=== PATIENT | male | born 1995 | race Caucasian/White ===

== ENCOUNTER 2016-12-21 14:20 | Emergency (ER) | payer SELFPAY ==
[~2016-12-21] VITALS: Ht 165.1 cm; Wt 58.0 kg
[2016-12-21 14:22] VITALS: BP 130/72; PULSE 80; RESP 16; TEMP 98; O2SAT 97
--- NOTE | 2016-12-21 15:32 | PD ---
HPI Chief Complaint: Injury Time Seen by Provider: 15:32 Travel History International Travel<30 days: No Contact w/Intl Traveler<30days: No Traveled to known affect area: No History of Present Illness HPI 21-year-old Serbian-speaking male presents to the emergency department for evaluation of left wrist injury. Patient is accompanied by his [id number] who translates the entire conversation, he was offered an official alarm operator but is requesting his family member translate. The patient was playing soccer this morning when he tripped and fell onto his left wrist with the wrist in flexion. States that he has had pain and swelling since this occurred. He did take Tylenol at home without improvement of symptoms. Pain is aggravated with palpation and movement of the wrist. Denies any numbness or tingling or weakness. Denies any prior injury or trauma to his wrist. Denies any medical conditions. No other complaints. PFSH Past Medical History Medical History: Denies Significant Hx Social History Alcohol Use: No Tobacco Use: No Substance Use: No Allergies-Medications (Allergen,Severity, Reaction): Coded Allergies: No Known Allergies (Unverified , 12/21/16) Reported Meds & Prescriptions Reported Meds & Active Scripts Active Ibuprofen 800 Mg Tab 800 Mg PO Q8H PRN 10 Days Lortab (Hydrocodone-Acetaminophen) 5-325 Mg Tab 1 Tab PO Q6H PRN Review of Systems Except as stated in HPI: all other systems reviewed are Neg Physical Exam Narrative GENERAL: Well-nourished and well-developed pleasant male patient in no acute distress. SKIN: Warm and dry. HEAD: Normocephalic and atraumatic. EYES: No injection, drainage, or hyphema noted. PERRLA. EOMI. ENT: No nasal drainage noted. Oropharynx is clear. NECK: Supple and the trachea is midline. CARDIOVASCULAR: Regular rate and rhythm. RESPIRATORY: Breath sounds are equal bilaterally with no accessory muscle use, wheezing, rhonchi, or crackles. GASTROINTESTINAL: Abdomen is soft, non-tender, and nondistended. EXTREMITY: Left wrist is swollen and tender to palpation. Radial pulses are 2+ bilaterally. Patient is able to make a fist and move his fingers without difficulty. Full range of motion in all other joints. Normal opposition of thumb. Distal extremity neurovascularly intact with intact two point discrimination. NEUROLOGICAL: Awake, alert, and oriented. Normal speech and gait. Cranial nerves are grossly intact. Data Data Last Documented VS Vital Signs Date Time Temp Pulse Resp B/P Pulse Ox O2 Delivery O2 Flow Rate FiO2 12/21/16 14:22 98.0 80 16 130/72 97 Room Air Orders Wrist, Complete ([id number]) (12/21/16 ) Acetamin-Hydrocod 325-5 Mg ([place] 5-325 (12/21/16 15:45) Splint Or Brace Apply/Monitor (12/21/16 15:31) Mandatory Outpatient Referral (12/21/16 16:10) [facility] Medical Decision Making Medical Screen Exam Complete: Yes Emergency Medical Condition: Yes Differential Diagnosis Wrist fracture versus sprain versus contusion Narrative Course 21-year-old male presents to the emergency department for evaluation of left wrist injury that occurred while playing soccer this morning. Patient is afebrile, vital signs are stable. The patient's left upper extremity is neurovascularly intact. X-ray imaging is been ordered and is pending. X-ray imaging shows a comminuted intra-articular mildly displaced Colles' fracture of the left wrist. Patient is placed in a sugar tong splint and will be discharged with prescriptions for pain. He is instructed to follow-up with Dr. Ojeda orthopedic surgeon in the office. The patient verbalizes understanding and agreement with treatment plan. All questions answered. Physician Communication Physician Communication I spoke with Dr. Ojeda, orthopedic surgeon, who also reviewed the patient's x- rays and recommends patient be placed in a splint and follow-up as an outpatient in the office. Diagnosis Primary Impression: Left wrist fracture Qualified Code: S62.102A - Left wrist fracture, closed, initial encounter Referrals: Percy Ojeda MD Patient Instructions: General Instructions, Wrist Fracture in Adults (ED) Additional Instructions: Splint. Keep hand elevated. Apply ice for 20 minutes on, 20 minutes off. Take medication as prescribed. Do not take Lortab with alcohol or while driving. Follow-up with Dr. Ojeda, orthopedic surgeon. Return to the ED for any acute worsening of symptoms. Med/Other Pt SpecificInfo: Prescription(s) given Scripts Ibuprofen 800 Mg [id number] Mg PO Q8H PRN (PAIN SCALE 1 TO 10) 10 Days Ref 0 Prov:Adam Lee MD 2/12/17 Hydrocodone-Acetaminophen (Lortab)5-325 Mg Tab1 Tab PO Q6H PRN (PAIN GREATER THAN 6) #15 TAB Ref 0 Prov:Adam Lee MD 12/21/16 Disposition: 01 DISCHARGE HOME Condition: Stable Katlyn Sanabria Dec 21, 2016 15:32
[2016-12-21] MEDS ORDERED: ACETAMINOPHEN/HYDROcodone 325 MG/5 MG TAB PO ONE (15:45)
--- NOTE | 2016-12-21 16:02 | RADRPT ---
EXAM DATE/TIME: 12/21/2016 15:31 [facility] COMPARISON: No previous studies available for comparison. INDICATIONS : Left wrist pain post fall today. MEDICAL HISTORY : None. SURGICAL HISTORY : None. ENCOUNTER: Initial ACUITY: 1 day PAIN SCORE: 10/10 LOCATION: Left wrist. FINDINGS: There is a mildly displaced intra-articular fracture of the distal radius and ulna styloid. No disloc ation. Overlying soft tissue swelling present. CONCLUSION: 1. Mildly displaced Colles' fracture left wrist. Gustavo Banuelos MD on December 21, 2016 at 16:00 Board Certified Radiologist. This report was verified electronically.
[2016-12-21] MEDS ORDERED: HYDR-3533 PO (16:12)
[2016-12-21] MEDS ORDERED: IBUP800T23 PO (16:12)
== END 2016-12-21 16:49 | disposition home or self-care (01) ==
LOC: NEPB 14:20
DX: S52.532A Colles' fracture of left radius, initial encounter for closed fracture (principal); S52.612A Displaced fracture of left ulna styloid process, initial encounter for closed fracture; W01.0XXA Fall on same level from slipping, tripping and stumbling without subsequent striking against object, initial encounter; Y93.66 Activity, soccer
CPT/HCPCS: 29125; 73110